=== PATIENT | female | born 1970 | race Caucasian/White ===

== ENCOUNTER 2019-02-11 16:40 | Inpatient (IN) ==
[2019-02-11] MEDS ORDERED: ASPIRIN PO ONE (16:49)
--- NOTE | 2019-02-11 16:56 | EKG Report ---
Test Performed on : 02/11/2019 4:54:05 PM Test Reason : palpitations cp Blood Pressure : / mmHG Vent. Rate : 102 BPM Atrial Rate : 102 BPM P-R Int : 154 ms QRS Dur : 080 ms QT Int : 338 ms P-R-T Axes : 077 064 043 degrees QTc Int : 440 ms Sinus tachycardia. Otherwise normal ECG When compared with ECG of 07-DEC-2017 15:06, No significant change was found Unconfirmed Result
[2019-02-11 17:39] LABS: BASO# 0.01 X1000 (0.0-0.2); BASO% 0.2 % (0.0-0.8); EOS# 0.02 X1000 (0.0-0.7); EOS% 0.3 % (0.0-10.0); HEMATOCRIT 19.4 % (37.0-47.0); LYMPH# 0.81 X1000 (1.2-3.4); LYMPH% 13.9 % (20.5-51.1); MCH 20.2 PG (27-31); MCHC 27.6 g/dL (33-37); MCV 73.4 FL (81-99); MONO# 0.34 X1000 (0.11-0.59); MONO% 5.8 % (1.7-9.3); NEUT# 4.64 X1000 (1.4-6.5); NEUT% 79.8 % (42.2-75.2); PLT 252 X1000 (130-400); RBC 2.67 XMIL (4.2-5.4); RDW 23.4 % (11.5-14.5); WBC 5.79 X1000 (4.8-10.8)
[2019-02-11 17:42] LABS: HEMOGLOBIN 5.3 g/dL (12.0-16.0)
[2019-02-11 17:43] LABS: LYMPHS 14 % (21-51); MICROCYTOSIS 3+; MONO 5 % (1-9); SEGS 81 % (42-75)
[2019-02-11] MEDS ORDERED: NS 500 ML IV ONE (17:45)
[2019-02-11 17:52] LABS: INR 0.98; PROTIME 13.5 Seconds (11.0-16.0); PTT 25.7 Seconds (22.3-41.8)
[2019-02-11 17:56] LABS: AGAP 11; ALBUMIN 4.1 g/dL (3.5-5.0); ALKALINE PHOSPHATASE 39 U/L (32-104); BUN 9 mg/dL (8-22); CALCIUM 9.4 mg/dL (8.8-10.2); CHLORIDE 102 mmol/L (98-107); CK PROFILE 40 U/L (24-173); COSMO 276; CREATININE 0.6 mg/dL (0.5-0.9); ESTIMATED GFR > 60; GLUCOSE 120 mg/dL (70-104); GOT 13 U/L (10-30); GPT 6 U/L (10-36); POTASSIUM 3.5 mmol/L (3.5-5.1); SODIUM 138 mmol/L (136-145); TCO2 25 mmol/L (25-35); TOTAL PROTEIN 6.6 g/dL (6.3-8.3)
--- NOTE | 2019-02-11 18:00 | PROVIDER DOCUMENTATION ---
HPI-General Adult - General Chief Complaint: Palpitations Stated Complaint: HEART PALP / DIZZY Time Seen by Provider: 02/11/19 17:48 Source: patient Allergies/Adverse Reactions: Patient Allergies Allergy/AdvReac Type Severity Reaction Status Date / Time haloperidol [From Haldol] AdvReac Unknown Verified 12/07/17 13:44 Home Medications: Home Medication List Medication Instructions Recorded Confirmed Last Taken Type Ergocalciferol (Vitamin D2) 50,000 unit PO Q7D #10 capsule 12/31/16 12/07/17 12/07/17 09:30 Rx [Vitamin D] 84009 UNIT Fluoxetine [Prozac] 10 mg PO QAM #30 capsule 12/31/16 12/07/17 12/07/17 09:30 Rx 10 MG Iron Carbonyl/Ascorbic Acid 1 each PO DAILY #30 tablet 12/31/16 12/07/17 12/07/17 09:30 Rx [Icar-C] 1 EACH Omeprazole 20 mg PO DAILY #30 capsule. 12/31/16 12/07/17 12/07/17 09:30 Rx 20 MG Diazepam [Valium] 5 mg PO HS 12/07/17 12/07/17 12/06/17 21:00 History 5 MG Nitrofurantoin Monohyd/M-Cryst 100 mg PO BID #14 cap 12/07/17 Unknown Rx [Macrobid 100 mg Capsule] - History of Present Illness -Gen Adult Nature of Presenting Problems: Pt. is 48 yof that presents with c/o SOB, palpitations and weakness with dizziness. Pt. denies any other complaints. Pt. reports a Hx of anemia and needing blood before. Location of Pain/Injury: reports: chest. denies: none, head, face, mouth, neck, upper extremity, hand(s), abdomen, back, pelvis, genitalia, lower extremity, feet, upper body, lower body, generalized, other Pain Radiation: reports: no radiation. denies: arm(s), back, buttocks, chest, epigastric, feet, groin, jaw, flank (L), legs (lower), LLQ, LUQ, neck, periumbilical, flank (R), RLQ, RUQ, shoulder(s), scapula, scrotal, sternal notch, suprapubic, legs (upper), urethral, vaginal, other Quality of Pain: reports: aching. denies: pressure, sharp, throbbing, tightness Severity: reports: mild. denies: moderate, severe Onset/Duration: reports: gradual, 3 days ago Timing: reports: still present. denies: improving, constant, getting worse Context/Activities at Onset: reports: none. denies: light activity, moderate activity, vigorous activity, recent emotional stress, recent physical stress, recent trauma history, possible bad food, cold exposure, eating, out of country travel, rest, sleep, sexual activity, other Modifying Factors: improves with: nothing Associated Symptoms: reports: chest pain, dizziness, shortness of breath, weakness. denies: denies symptoms, anxiety, arm pain, back/neck pain, constipation, cough, diaphoresis, diarrhea, EENT symptoms, fatigue, fever/chills, genitourinary problems, headaches, heartburn, joint pain, loss of appetite, malaise, muscle aches, sinus congestion/drainage, nausea, rash, seizure, sensory/motor loss, pain with inspiration, swelling/mass in abdomen, syncope, vomiting, trouble walking, other Similar Symptoms Previously?: Yes Recently seen or treated by another doctor?: No Review of Systems - Adult - REVIEW OF SYSTEMS - ADULT Constitutional: reports: no symptoms reported Eyes: reports: no symptoms reported Ears, Nose, Mouth & Throat: reports: no symptoms reported Cardiovascular: reports: see HPI, palpitations. denies: chest pain, orthopnea, syncope Respiratory: reports: see HPI, shortness of breath. denies: cough, pleurisy, wheezing Gastrointestinal: reports: no symptoms reported Genitourinary: reports: no symptoms reported Musculoskeletal: reports: no symptoms reported Integumentary: reports: no symptoms reported Neurological: reports: see HPI, dizziness/vertigo. denies: numbness, seizure, tremors Psychiatric: reports: no symptoms reported Past History - Adult - PAST MEDICAL HISTORY-ADULT Review of Records: reports: Old Records Reviewed, Nursing Assessment Review, Medications Reviewed, Social history reviewed & non-contributory. Major Childhood Illnesses: reports: denies history Cardiovascular: reports: denies history Respiratory: reports: denies history Gastrointestinal: reports: GERD Obstetrical/Gynecological: reports: denies history Genitourinary: reports: denies history Musculoskeletal: reports: denies history Neurological: reports: denies history Psychiatric: reports: anxiety, bipolar, depression, other (ADD) Endocrine/Immune: reports: anemia Other Conditions: reports: denies history - PRIOR SURGERIES/PROCEDURES Surgical/Procedure History: reports: cholecystectomy, BTL, tonsillectomy - IMMUNIZATION STATUS Childhood Immunizations: See Nurse Assessment Flu Vaccine: See Nurse Assessment - FAMILY HISTORY Family History: reviewed, not pertinent - SOCIAL HISTORY Smoking: cigarettes, greater than 1 pack/day Provider spent 3-5 mins advising pt. on dangers of tobacco.: Discussed manners to quit use, and f/u contacts for add'l counseling. Physical Exam-General - PHYSICAL EXAM-ADULT Initial Vital Signs Reviewed: Yes - CONSTITUTIONAL General Appearance: moderate distress. negative: anxious, slow to respond, obtunded, combative - EYES Eyes: PERRL/EOMI, pink conjunctivae - HEAD, EARS, NOSE, MOUTH & THROAT HENMT: normocephalic/atraumatic, moist mucous membranes. negative: angioedema, frontal tenderness, maxillary tenderness - NECK Neck: non-tender, full range of motion, supple, normal inspection. negative: lymphadenopathy, trachial deviation, thyromegaly - RESPIRATORY Respiratory: lungs clear, normal breath sounds - CARDIOVASCULAR Cardiovascular: normal peripheral pulses, regular rate, rhythm, no edema - GASTROINTESTINAL (ABDOMEN) Abdominal Exam: normal bowel sounds, non tender, soft - LYMPHATIC Lymphatic: no adenopathy. negative: axilla node tender, cervical node tenderness - MUSCULOSKELETAL Back Exam: normal inspection, no CVA tenderness, no vertebral tenderness Extremity: normal range of motion, non-tender, normal gait, normal inspection Peripheral Pulses: radial (R): 2+, radial (L): 2+ - SKIN Integumentary: pallor. negative: cyanosis, erythema, swelling, tenderness - NEUROLOGIC Neurologic: grossly normal, no motor/sensory deficits - PSYCHIATRIC Psych/Mental Status: normal mood/affect, normal thought content, normal thought process, oriented x 3 Progress - PLAN OF CARE/RESULTS Progress/Plan/Lab Results: Vital Signs - 8 hr 02/11/19 16:43 Temperature 98.9 F Pulse Rate 84 Respiratory Rate 18 Blood Pressure 108/69 O2 Sat by Pulse Oximetry 100 Laboratory Results - last 24 hr 02/11/19 02/11/19 17:02 17:02 WBC 5.79 RBC 2.67 L Hgb 5.3 L* Hct 19.4 L MCV 73.4 L MCH 20.2 L MCHC 27.6 L RDW Std Deviation 23.4 H Plt Count 252 MPV Not Reportable Immature Gran % (Auto) 0.0 Neut % (Auto) 79.8 H Lymph % (Auto) 13.9 L Berg[place] % (Auto) 5.8 Eos % (Auto) 0.3 Baso % (Auto) 0.2 Immature Gran # (Auto) 0.00 Neut # (Auto) 4.64 Lymph # (Auto) 0.81 L Bergen # (Auto) 0.34 Eos # (Auto) 0.02 Baso # (Auto) 0.01 Segmented Neutrophils 81 H Lymphocytes 14 L Monocytes 5 Microcytosis 3+ PT 13.5 INR 0.98 PTT (Actin FS) 25.7 Orders Category Date Time Status Cardiac Monitoring DIRECTED Care 02/11/19 16:49 Active Oxygen Therapy- ED Nursing DIRECTED Care 02/11/19 16:49 Active Saline Loc NOW Care 02/11/19 16:49 Active Transfuse .Give-Transfuse Care 02/11/19 17:45 Active CHEST-2 VIEWS [RAD] Stat Exams 02/11/19 16:49 Taken CBC WITH ELECTRONIC DIFF [HEME] Stat Lab 02/11/19 17:02 Completed CK PROFILE [SP CHEM] Stat Lab 02/11/19 17:02 Received COMPREHENSIVE METABOLIC PANEL [CHEM] Stat Lab 02/11/19 17:02 Received LRPC (RED CELLS) [BBK] Stat Lab 02/11/19 17:45 Ordered OCCULT BLOOD SCREEN STOOL PL Stat Lab 02/11/19 17:55 Uncollected PRO B-NATRIURETIC PEPTIDE Stat Lab 02/11/19 17:02 Received PROTIME WITH INR [COAG] Stat Lab 02/11/19 17:02 Completed PTT [COAG] Stat Lab 02/11/19 17:02 Completed TROPONIN T Stat Lab 02/11/19 17:02 Received TYPE & SCREEN [BBK] Stat Lab 02/11/19 17:44 Uncollected 0.9% Sodium Chloride Inj [Ns] 500 ml Med 02/11/19 17:45 Discontinued IV As Directed mls/hr Aspirin Med 02/11/19 16:49 Discontinued 325 mg PO NOW ONE CP/SOB/Palp >45 yrs of Age Stat Oth 02/11/19 16:49 Ordered EKG [EKG] Stat Ther 02/11/19 16:49 Draft Laboratory Tests 02/11/19 02/11/19 02/11/19 17:02 17:02 17:02 WBC 5.79 RBC 2.67 L Hgb 5.3 L* Hct 19.4 L MCV 73.4 L MCH 20.2 L MCHC 27.6 L RDW Std Deviation 23.4 H Plt Count 252 MPV Not Reportable Immature Gran % (Auto) 0.0 Neut % (Auto) 79.8 H Lymph % (Auto) 13.9 L Berg[place] % (Auto) 5.8 Eos % (Auto) 0.3 Baso % (Auto) 0.2 Immature Gran # (Auto) 0.00 Neut # (Auto) 4.64 Lymph # (Auto) 0.81 L Bergen # (Auto) 0.34 Eos # (Auto) 0.02 Baso # (Auto) 0.01 Segmented Neutrophils 81 H Lymphocytes 14 L Monocytes 5 Microcytosis 3+ PT INR PTT (Actin FS) Sodium 138 Potassium 3.5 Chloride 102 Carbon Dioxide 25 Anion Gap 11 BUN 9 Creatinine 0.6 Estimated GFR/1.73 m2 > 60 BUN/Creatinine Ratio 15 Glucose 120 H Calculated Osmolality 276 Calcium 9.4 Total Bilirubin 0.20 AST 13 ALT 6 L Alkaline Phosphatase 39 Creatine Kinase 40 Troponin T [id number] Pept 117 Total Protein 6.6 Albumin 4.1 Globulin 3.0 Albumin/Globulin Ratio 2.0 02/11/19 02/11/19 17:02 17:02 WBC RBC Hgb Hct MCV MCH MCHC RDW Std Deviation Plt Count MPV Immature Gran % (Auto) Neut % (Auto) Lymph % (Auto) Bergen % (Auto) Eos % (Auto) Baso % (Auto) Immature Gran # (Auto) Neut # (Auto) Lymph # (Auto) Bergen # (Auto) Eos # (Auto) Baso # (Auto) Segmented Neutrophils Lymphocytes Monocytes Microcytosis PT 13.5 INR 0.98 PTT (Actin FS) 25.7 Sodium Potassium Chloride Carbon Dioxide Anion Gap BUN Creatinine Estimated GFR/1.73 m2 BUN/Creatinine Ratio Glucose Calculated Osmolality Calcium Total Bilirubin AST ALT Alkaline Phosphatase Creatine Kinase Troponin T < 0.010 Siz-T-Dcibqclbamu Pept Total Protein Albumin Globulin Albumin/Globulin Ratio Discussed results and plan of care with patient. Patient agrees with plan and verbalizes understanding. Result Diagrams: 02/11/19 17:02 02/11/19 17:02 - EKG 1 Time of EKG reading by physician:: 16:56 EKG Read and Signed by:: Ty Mock EKG Interpretation (*Must complete 3 of following elements*): Normal Rate: 102 Rhythm: Sinus tach [place]: normal QRS: normal OR Interval: normal ST Wave: normal - XRAY 1 XRAY Study: Chest ([facility] - [address] [facility], [address], [place] [address] [facility] - [address] [place] [address] Department of Imaging Patient: JONNY MINOR Date: 02/11/19#: [id number] : 1970ADM Status: REG ERAcct#: [id number] Age/Sex: 48/FRoom/Bed: Loc: P.ED Ordering Physician: Ty Mock MD Family Physician: None,PCP Reason for Procedure: palpitations cp Signed EXAM: CHEST-2 VIEWS HISTORY: palpitations cp TECHNIQUE: Chest two views COMPARISON: 12/07/2017 FINDINGS: The lungs are hyperexpanded. The heart is not enlarged. The vessels are not distended. There are no infiltrates. No pleural effusions. Moderate sized hiatal hernia. Nodule in the lower left lung is unchanged. IMPRESSION: No acute abnormality. Electronically signed by Calvin Diaz 02/11/2019 6:41 PM 02/11/191840 Interpreting Physician: Calvin Diaz MD Dictated Date/Time: 02/11/191839 cc: Ty Mock MD; None,PCP) XRAY Interpretation: See note - CONSULTS/PCP/HOSPITALIST Notification #1 *Consult/PCP/Hospitalist*: Dr. Calles Time Discussed: 19:07 Reason/Comments: Admission Consult Disposition: Will see in ED, Admit (Call hospitilist at main) #2 Consult: Dr. Funes Time Discussed: 19:12 Reason/Comments: Admission Consult Disposition: Admit (Call GI and send over) #3 Consult: Dr. Victor Time Discussed: 19:23 Reason/Comments: Consult Departure - Departure Date of Disposition Decision: 02/11/19 Time of Disposition Decision: 18:12 DIAGNOSIS: Tobacco use disorder Anemia Qualifiers: Anemia type: unspecified type Qualified Code(s): D64.9 - Anemia, unspecified Disposition: ADMITTED INPATIENT 09 Certified Medical Emergency: Emergent Condition: Stable Referrals and Follow-Ups: None,PCP [Primary Care Provider] - - Critical Care Note This patient required my direct & personal management of CC.: No Attestation - Physician/ ELISE Attestation Patient care was provided by Advanced Practice Provider:: Yes Advanced Practice Provider:: Carlos Caldera Advanced Practice Provider documentation review:: The Mid-level provider documentation, treatment plan and medical decision making was reviewed by the physician who agrees with all treatment and medical decision making by the MLP. The physician spent face to face time with patient:: No Advanced Practice Provider documentation review:: Supervising physician onsite and consulted in the evaluation and care of this patient. The physician did not have a face to face encounter with the patient.
[2019-02-11 18:41] LABS: OCCULT BLOOD 1 POSITIVE (NEGATIVE)
--- NOTE | 2019-02-11 18:43 | Diag Imaging Result Doc PS360 ---
EXAM: CHEST-2 VIEWS HISTORY: palpitations cp TECHNIQUE: Chest two views COMPARISON: 12/07/2017 FINDINGS: The lungs are hyperexpanded. The heart is not enlarged. The vessels are not distended. There are no infiltrates. No pleural effusions. Moderate sized hiatal hernia. Nodule in the lower left lung is unchanged. IMPRESSION: No acute abnormality. Electronically signed by Calvin Diaz 02/11/2019 6:41 PM
[2019-02-11] MEDS ORDERED: SODIUM CHLORIDE 0.9% INJ ONE (19:10)
[2019-02-11] MEDS ORDERED: PROTONIX IV ONE (19:10)
[2019-02-11] MEDS ORDERED: PROTONIX 80 MG in NS 80 ML IV SCH (19:15)
[2019-02-11] MEDS ORDERED: NS 500 ML ONE ×2 (20:41→23:23)
[2019-02-12] MEDS: NS 1,000 ML IV SCH ×3 (01:41→22:08)
[2019-02-12] MEDS: ZOFRAN IV PRN ×2 (01:41→20:33)
--- NOTE | 2019-02-12 03:29 | HISTORY AND PHYSICAL ---
PRIMARY CARE PHYSICIAN: None. CHIEF COMPLAINT: Dizziness, weakness, heart palpitations, and chest pain. HISTORY OF PRESENT ILLNESS: Ms. Collins is a 48-year-old female. She presented to [facility] ER today with a past medical history of depression, anxiety, constipation, chronic anemia, hiatal hernia, and GI bleeding. The patient states that she has been having dizziness, heart palpitations and chest pain for the past 3 days. The patient states she has been very weak too for the past few weeks. The patient states she does have a past medical history of anemia and was in the hospital back in 2013, and was seen by Dr. Kerr. She was noted to have a hiatal hernia at that time and gastritis. The patient is on home iron. She states that she does have iron deficiency anemia. She is also on vitamin B12 and vitamin D. The patient states that she did vomit yesterday, she did not note any blood in the vomit or any coffee- ground emesis noted. She states that her stools are very hard and sometimes they appear dark. She is also complaining of dysuria when she urinates she also has some increased frequency with urination. No hematuria noted. The patient denies chest pain at this time. Laboratory findings in the ER show the patient to have a hemoglobin of 5.3, hematocrit of 19.4, MCV of 73.4, MCH of 20.29,and pH of 27.6. Stool occult blood was positive. PAST MEDICAL HISTORY: Constipation, anemia, a GI bleed in [address] Kerr, was found to have a hiatal hernia and gastritis, depression, anxiety. PAST SURGICAL HISTORY: Gallbladder removal, tubal, and EGD. FAMILY HISTORY: Mother has depression and hypothyroidism. Father has COPD. Sister that has depression and hypothyroidism. SOCIAL HISTORY: The patient lives in [place] with her and her other family members. She is a housewife. She smokes a half a pack a day of cigarettes and has for 22 years. She denies any alcohol or drug abuse; however, she does states that over 20 years ago she was a crack cocaine addict, but has quit for over 20 years. ALLERGIES: Haldol. MEDICATIONS: Vitamin B12 5000 mcg daily, ascorbic acid 1 tablet p.o. daily, vitamin D2 50,000 units p.o. every 7 days. LABORATORY DATA AND DIAGNOSTICS: White blood cell count 5.79, hemoglobin 5.3, hematocrit 19.4, red blood cell count 2.67, MCV 73.4, MCH 20.2, MCHC 27.6, RDW is 23.4, platelet count is 252,000. PT is 13.5, INR is 0.98, PTT is 25.7. Sodium is 138, potassium is 3.5, chloride is 102, carbon dioxide is 25, anion gap is 11, BUN is 9, creatinine is 0.6. Estimated GFR is greater than 60, glucose is 120, calcium is 9.4, total bilirubin is 0.2, AST is 13, ALT is 6, alkaline phosphatase is 39. Creatine kinase is 40. Troponin is less than 0.01. ProBNP is 117. Stool for occult blood is positive. Chest x-ray shows no acute abnormality. REVIEW OF SYSTEMS: A 12-point review of systems has been obtained. All are negative except what is stated above in the HPI. PHYSICAL EXAMINATION: VITAL SIGNS: Temperature is 98.2 degrees, pulse rate is 100, respiratory rate is 20, blood pressure is 122/61, O2 saturation is 100% and this is on nasal cannula at 2 L. Weight is 158 pounds, height is 5 feet 2 inches. GENERAL: This is a 48-year-old female, she is lying on the bed, she is in no acute distress at present time. She is well nourished and well developed. HEENT: Atraumatic and normocephalic. Pupils are equal, round and reactive to light. Extraocular movements are intact. Sclerae are anicteric. Mucous membranes are moist. NECK: Supple. No lymphadenopathy. Trachea is midline. No JVD. No thyromegaly. No bruits. CARDIOVASCULAR: Regular rate and rhythm. No murmurs, gallops or rubs appreciated. RESPIRATORY: Lung sounds are clear with equal chest excursion. Respirations are nonlabored with no accessory muscle usage. GASTROINTESTINAL: Abdomen is soft, nondistended and nontender. Bowel sounds are present x4. NEUROLOGIC: Cranial nerves II-XII intact. The patient is awake, alert and oriented, able to follow all commands. MUSCULOSKELETAL: Full distal strength noted. No abnormality of gait. No deformities. EXTREMITIES: No clubbing, cyanosis or edema noted. DP and PT pulses are present and palpable. SKIN: Warm, dry and intact. No rashes, bruises or no diaphoresis noted. ASSESSMENT AND PLAN: 1. Gastrointestinal bleed. We have admitted this patient to the CIC unit. She was given 2 units of blood at [place] emergency room. We are going to recheck her CBC this morning. We placed her on IV fluid hydration of normal saline at 100. I have consulted Dr. Kerr for Gastroenterology. 2. Anemia, suspicious for iron deficiency anemia. This patient is on home iron. I have ordered an iron level. 3. Depression. The patient states that she has not been on her home Prozac. She does not have a doctor at this time, so she has not been taking this medication. We are not going to restart this medication at this time. 4. Anxiety. The patient was on Valium at home, but she states that since she has not been able to see the doctor she has not been able to get her medications filled because she does not have insurance, so we will not restart this medication. 5. Nicotine dependency. We have provided smoking cessation and I have ordered her a Nicotine patch daily. 6. Deep venous thrombosis prophylaxis. Because the patient does have acute gastrointestinal bleed we are only going to place her on sequential compression devices. This should cover her for deep venous thrombosis prophylaxis. 7. Gastrointestinal prophylaxis. The patient is on a Protonix drip at this time that started at [place] emergency room. We will continue this drip and she has also got intravenous Zofran p.r.n. for nausea. We have admitted this patient to the CIC unit. Placed on cardiac monitor. She did receive 2 units of blood, one at [place] and then one en route from [place], so those are complete at this time. She is on a Protonix drip, we will continue that. We are going to repeat all her labs this morning. I am going to check a CBC, a BMP, magnesium, phosphorus, vitamin B12 level, iron level, a TSH level, and a folate level. She has already had an occult blood stool that was positive. We are going to check H&H Q 6hrs. I am awaiting the results of her urinalysis before starting any medications for her dysuria. I have started her on IV fluid hydration. We are going to watch for any further positive stools. We are going to keep her NPO at this time and await Gastroenterology recommendations. Dictated by NANCY Larsen for Edward Funes MD I have performed a face to face diagnostic evaluation. Labs and xrays - reviewed. Exam- chest clear, CV- regular, Abd- soft. A/P- GI bleed- admit, npo, GI consult, monitor H/H, transfusion of PRBC. Dr. Funes cc: MD Hugh Paniagua MD [facility]
[2019-02-12] MEDS ORDERED: PROTONIX 80 MG in NS 80 ML IV SCH (05:00)
[2019-02-12 05:58] LABS: BASO# 0.02 X1000 (0.0-0.2); BASO% 0.4 % (0.0-0.8); EOS# 0.07 X1000 (0.0-0.7); EOS% 1.5 % (0.0-10.0); HEMATOCRIT 24.7 % (37.0-47.0); HEMOGLOBIN 7.2 g/dL (12.0-16.0); LYMPH# 1.25 X1000 (1.2-3.4); LYMPH% 26.2 % (20.5-51.1); MCH 22.2 PG (27-31); MCHC 29.1 g/dL (33-37); MONO# 0.32 X1000 (0.11-0.59); MONO% 6.7 % (1.7-9.3); NEUT# 3.11 X1000 (1.4-6.5); NEUT% 65.2 % (42.2-75.2); PLT 202 X1000 (130-400); RBC 3.25 XMIL (4.2-5.4); RDW 21.7 % (11.5-14.5); WBC 4.77 X1000 (4.8-10.8)
[2019-02-12 06:11] LABS: AGAP 10; BUN 9 mg/dL (8-22); CALCIUM 8.3 mg/dL (8.8-10.2); CHLORIDE 107 mmol/L (98-107); COSMO 280; CREATININE 0.6 mg/dL (0.5-0.9); ESTIMATED GFR > 60; GLUCOSE 91 mg/dL (70-104); MAGNESIUM 1.8 mg/dL (1.5-2.7); POTASSIUM 3.6 mmol/L (3.5-5.1); SODIUM 141 mmol/L (136-145); TCO2 24 mmol/L (25-35)
--- NOTE | 2019-02-12 07:33 | Diag Imaging Result Doc PS360 ---
EXAM: KUB ABDOMEN HISTORY: GI bleed TECHNIQUE: Abdomen two views COMPARISON: None. FINDINGS: No free air beneath the diaphragm. The gallbladder has been removed. There is stool throughout the colon. No bowel obstruction. No organomegaly. No abnormal abdominal calcifications. IMPRESSION: Mild constipation. Electronically signed by Calvin Diaz 02/12/2019 7:31 AM
[2019-02-12 08:59] LABS: IRON SATURATION 21 %; TIBC 283 ug/dL; TOTAL IRON 59 ug/dL (49-151); UNBOUND IRON 224 ug/dL (112-346)
[2019-02-12] MEDS: NICODERM PATCH TD SCH (09:52)
[2019-02-12] MEDS: NEXIUM IV SCH ×2 (10:01→20:33)
[2019-02-12 10:03] LABS: URINE SOURCE CLEAN CATCH
[2019-02-12 10:21] LABS: BILIRUBIN URINE NEGATIVE (NEGATIVE); BLOOD URINE NEGATIVE (NEGATIVE); COLOR YELLOW; GLUCOSE URINE NEGATIVE (NEGATIVE); KETONE URINE NEGATIVE (NEGATIVE); LEUKOCYTES URINE LARGE (NEGATIVE); NITRITE URINE NEGATIVE (NEGATIVE); PROTEIN URINE NEGATIVE (NEGATIVE); SP GRAVITY URINE 1.013; TURBIDITY URINE CLEAR (CLEAR); UROBILINOGEN URINE NORMAL (NORMAL)
[2019-02-12 10:23] LABS: UR EPITHELIAL CELLS <10 /HPF (<10); URINE BACTERIA 1+ /HPF; URINE RBC <10 /HPF (<10); URINE WBC <10 /HPF (<10)
--- NOTE | 2019-02-12 11:10 | PROGRESS NOTE ---
DATE: 02/12/2019 SUBJECTIVE: This morning Ms. Collins referred to be doing okay. No new complaints. Ms. Collins refers to be feeling excessively weak, dizzy, and that was the main reason why she came to the emergency department, where she was evaluated and found to have a hemoglobin of 5.3. Ms. Collins also reports that she has been having intermittently dark stools. She got 2 units of PRBC this morning. Hemoglobin up to 7.2. She is feeling a lot better. OBJECTIVE: Vital signs: Blood pressure is 102/52, pulse of 80 respirations 15, temperature 98.8 degrees, patient is saturating 96%. On general exam, Ms. Collins is 48-year-old female. She is in bed no distress mucosa is pink and moist. Anicteric. Acyanotic. Neck is supple. Chest was clear to auscultation. Cardiovascular: Regular rate and rhythm. Abdomen: Soft, nontender. Extremities: No pedal edema. Central Nervous System: Patient is awake, alert, oriented. No focal neurological deficit. DIAGNOSTIC STUDIES: Lab work has been reviewed. Hemoglobin is up to 7.2, severe microcytosis. Chemistry is unremarkable. Iron studies shows ferritin of 44 which is remarkably low. TSH is 6.46. Imaging studies including a KUB this morning showed mild constipation. A chest x-ray yesterday showed no acute pathology. PREVIOUS CLINICAL DATA: EGD was done in [address] Kerr, which revealed a Jose lesion in the stomach, most likely the cause of her anemia, mixed hiatal hernia which is large and there was also an esophageal ring. ASSESSMENT: 1. Severe symptomatic anemia with iron deficiency. The patient is status post 2 PRBC transfusion. 2. Iron deficiency anemia secondary to chronic gastrointestinal bleed. 3. History of large hiatal and paraesophageal hernia with Jose lesion, suspected to be the cause of the patient's chronic gastrointestinal blood loss with anemia. 4. Mildly elevated TSH we are going to repeat this with a free T4. 5. History of major depressive disorder, anxiety disorder, stable. In general, I think Ms. Collins is not a lot better. She is on b.i.d. PPI. She is pending Gastroenterology evaluation today. cc: Edward Marroquin MD
[2019-02-12 12:29] LABS: HEMATOCRIT 23.4 % (37.0-47.0); HEMOGLOBIN 6.9 g/dL (12.0-16.0)
[2019-02-12] MEDS ORDERED: NS 500 ML IV ONE ×2 (15:25)
[2019-02-12] MEDS ORDERED: PROTONIX IV SCH (19:11)
[2019-02-12] MEDS: SODIUM CHLORIDE 0.9% INJ SCH (20:32)
[2019-02-13 01:03] LABS: HEMATOCRIT 25.9 % (37.0-47.0); HEMOGLOBIN 7.8 g/dL (12.0-16.0)
--- NOTE | 2019-02-13 03:50 | GASTROENTEROLOGY CONSULTATION ---
DATE: 02/13/2019 REASON FOR CONSULTATION: Melena, symptomatic anemia. HISTORY OF PRESENT ILLNESS: Ms. Ruthann Collins is a 48-year-old woman with past medical history of GERD, prior GI bleed in the remote past from Jose ulcers and gastritis, hiatal hernia, Schatzki's ring, prior cholecystectomy, who presents with 1 week of progressive fatigue, palpitations, chest pain, dyspnea on exertion. The patient reports having intermittent melenic stools for the past couple of months. She says that her appetite has been decreased and she has not had any weight loss. She rarely have any nausea or vomiting. She is not on any blood thinners. She does take Aleve 2 rarely. She has chronic constipation at baseline. No prior colonoscopy. No family history of GI malignancies. REVIEW OF SYSTEMS: As per HPI, otherwise 12-point review of systems are negative. PAST MEDICAL HISTORY: As per HPI. Her other history includes chronic anemia, depression. PAST SURGICAL HISTORY: Cholecystectomy, tubal ligation. SOCIAL HISTORY: She is a 1/2 pack per day smoker, She has smoked for over 22 years. No alcohol or drug use. FAMILY HISTORY: No family history of GI malignancies. MEDICATIONS: Iron, B12, vitamin D, multivitamin, Aleve. ALLERGIES: To Haldol. PHYSICAL EXAMINATION: Vital Signs: Temperature 98.6 degrees, heart rate 84, respiratory rate 20, blood pressure 104/55, O2 saturation 97% on room air. General: Patient is awake, alert, oriented, in no acute distress. HEENT: Sclerae anicteric. Moist mucous membranes. Extraocular motor intact. Neck: Supple. No JVD or lymphadenopathy. Cardiac: Regular rate and rhythm. No murmurs, rubs, or gallops. Lungs: Clear to auscultation bilaterally. Abdomen: Soft, nontender, nondistended. Normoactive bowel sounds. No rebound or guarding. Extremities: No clubbing, cyanosis, or edema. Neurologic: Nonfocal. LABS: White count of 4.77, hemoglobin 6.9 from 5.3, after receiving 2 units of packed red blood cells, and then had 1 after the 6.9 hemoglobin, platelets of 202,000. INR 0.98. BMP is unremarkable as well as LFTs. Iron studies show normal iron studies, these were checked after she had a blood transfusion. B12, folate within normal limits. TSH is 6.46. UA shows large leukocytes. IMAGIN. Chest x-ray on 02/11 shows no acute abnormality. 2. KUB shows mild constipation. ASSESSMENT AND PLAN: Ms Ruthann Collins is a 48-year-old woman with past medical history of gastroesophageal reflux disease, prior gastrointestinal bleed from Jose ulcers, gastritis. She has a prior history of Schatzki's ring and iron deficiency anemia, who presents with symptomatic anemia in the setting of melenic stools for the last 2 months. The patient reports taking NSAIDs rarely. She says her symptoms are similar to when she presented for GI bleed in 2013. At that time, Dr. Kerr performed her endoscopy. She has been transfused 3 units of blood with accurate response. She is hemodynamically stable. Her iron studies are unrevealing as well as her B12 and folate. She is currently on Nexium 40 mg IV b.i.d., IV fluids, and antiemetics. Her MCV is low at 76, consistent with chronic anemia. I suspect that her bleeding is not acute and that she has been oozing for a long period of time. We will plan on diagnostic EGD tomorrow. If negative per radiology of bleeding, we will plan for a follow-up colonoscopy. The patient previously was advised to have a colonoscopy on discharge in 2013, when she had her prior bleed, but could not follow up with Dr. Kerr given insurance coverage. Thank you for this consult. We will follow with you. Please call with any questions or concerns.
[2019-02-13] MEDS: NS 1,000 ML IV SCH ×3 (04:16→16:00)
[2019-02-13 06:27] LABS: HEMATOCRIT 25.6 % (37.0-47.0); HEMOGLOBIN 7.8 g/dL (12.0-16.0); MCH 24.3 PG (27-31); MCHC 30.5 g/dL (33-37); MCV 79.8 FL (81-99); PLT 200 X1000 (130-400); RBC 3.21 XMIL (4.2-5.4); WBC 4.97 X1000 (4.8-10.8)
[2019-02-13 06:41] LABS: AGAP 9; ALBUMIN 3.1 g/dL (3.5-5.0); BUN 3 mg/dL (8-22); CALCIUM 8.4 mg/dL (8.8-10.2); CHLORIDE 108 mmol/L (98-107); COSMO 283; CREATININE 0.6 mg/dL (0.5-0.9); ESTIMATED GFR > 60; GLUCOSE 88 mg/dL (70-104); PHOSPHORUS 3.2 mg/dL (2.7-4.5); SODIUM 144 mmol/L (136-145); TCO2 27 mmol/L (25-35)
[2019-02-13 06:50] LABS: FREE T4 0.85 ng/dL (0.93-1.70); TSH 4.16 uIUmL (0.27-4.20)
[2019-02-13] MEDS ORDERED: XYLOCAINE-MPF 2% ONE (09:19)
[2019-02-13] MEDS ORDERED: DIPRIVAN 1% ONE (09:19)
--- NOTE | 2019-02-13 09:40 | ENDOSCOPY OPERATIVE NOTE ---
[facility] ENDOSCOPY OPERATIVE NOTE , PATIENT: Ruthann Collins ADMISSION DATE: MR#: [id number] : 1970 EGD PROCEDURE REPORT PROCEDURE DATE: 02/13/2019 SURGEON: Leobardo Hammer MD STATUS: inpatient SHOE TREER: Stehpanie Arcos PREOPERATIVE DIAGNOSIS: The patient is a 48 yr old female here for an EGD due to anemia secondary to chronic blood loss, history of esophageal reflux, and melena. PROCEDURE PERFORMED: EGD, diagnostic MEDICATIONS: Per Anesthesia TOPICAL ANESTHETIC: none CONSENT: The patient understands the risks and benefits of the procedure and understands that these r isks include, but are not limited to: sedation, allergic reaction, infection, perforation and/or bleeding. Alternative means of evaluation and treatment include, among others: physical exam, x-rays, and/or surgical intervention. The patient elects to proceed with this endoscopic procedure. HISORY AND PHYSICAL: 02/13/2019 function. Hand hygiene and appropriate measures for infection prevention was taken. After the risks, benefits and alternatives of the procedure were thoroughly explained, Informed consent was verified, confirmed and timeout was successfully executed by the treatment team. The patient was anesthetized with topical anesthesia and the PR97-e42 ([id number]) endoscope was introduced through the mouth and advanced to the second portion of the duoden um. Retroflexion was performed in the stomach and revealed a hiatal hernia. The gastroscope was then slowly withdrawn and removed. ESOPHAGUS: The z-line was noted at. 35. A 10 cm hiatal hernia was noted. STOMACH: Mild gastritis (inflammation) was found in the gastric body and gastric antrum. Erosions n oted in the Large Hiatal hernia sac suggesting chronic blood loss. DUODENUM: The duodenal mucosa showed no abnormalities in the duodenal bulb, 1st part duodenum, and 2n d part duodenum. SPECIMENS REMOVED: No ADVERSE EVENTS: There were no complications. POSTOPERATIVE DIAGNOSIS: 1. The z-line was noted at 2. 10 cm hiatal hernia 3. Gastritis (inflammation) was found in the gastric body and gastric antrum 4. Erosions noted in the Large Hiatal hernia sac suggesting chronic blood loss 5. The duodenal mucosa showed no abnormalities in the duodenal bulb, 1st part duodenum, and 2nd part duodenum RECOMMENDATIONS: 1. Start Proton pump inhibitor daily - 30 minutes before a meal 2. Surgery consultation for large Hiatal hernia, Start Iron C BID and MVI QD for 90 days. GERD life tsyle changes. REPEAT EXAM: Leobardo Hammer MD eSigned: Leobardo Hammer MD 02/13/2019 9:40 AM cc: PATIENT NAME: Ruthann Collins MR#: [id number]
[2019-02-13] MEDS: NICODERM PATCH TD SCH (10:28)
[2019-02-13] MEDS: NEXIUM IV SCH ×2 (10:28→20:31)
--- NOTE | 2019-02-13 10:57 | PROGRESS NOTE ---
DATE: 02/13/2019 SUBJECTIVE: This morning, Ms. Collins refers to be doing well. No new complaints. She just came out of EGD this morning. OBJECTIVE: Vital signs: Blood pressure is 122/68, pulse of 79, respirations 16 and temperature is 98.0 degrees. General exam: Ms. Collins is 48-year-old female. She is in bed in no distress. HEENT: Mucosa is pink and moist. Anicteric. Acyanotic. Neck: Supple. Chest: Clear to auscultation. No crepitations. No rhonchi. Cardiovascular: Regular rate and rhythm. Abdomen: Soft, nontender. Bowel sounds present. Extremities: No pedal edema. SIMULATION ENGINEER: Patient is awake, alert, oriented. There is no focal neurological deficit. LABORATORY DATA: Has been reviewed. Hemoglobin is 7.8 which has been fairly stable after 3 units of PRBC. Chemistry is unremarkable, except for low potassium. X-RAY DATA: Review of the endoscopy procedure reveals a large hiatal hernia. ASSESSMENT: 1. Severe symptomatic iron deficiency anemia. 2. Anemia secondary to chronic gastrointestinal blood loss. 3. Large hiatal hernia. The patient has been recommended to be seen by Surgery. Consult has been placed today. 4. History of major depressive disorder, anxiety disorder, stable. PLAN: So, in general, Ms. Collins seems to be fairly stable. She is status post 3 PRBC transfusions. H and H is stable. She does not seem to have any more ongoing acute blood loss. She is status post EGD. Findings consist of large hiatal hernia. Surgery has been consulted. cc: Edward Marroquin MD
[2019-02-13] MEDS: CARAFATE PO SCH ×3 (12:34→23:32)
[2019-02-13] MEDS ORDERED: GOLYTELY PO ONE (18:00)
[2019-02-13] MEDS: ICAR-C PO SCH (20:31)
[2019-02-13] MEDS: SODIUM CHLORIDE 0.9% INJ SCH (20:31)
[2019-02-14] MEDS: NS 1,000 ML IV SCH ×3 (01:13→13:29)
--- NOTE | 2019-02-14 02:50 | GENERAL SURGERY CONSULTATION ---
DATE: 02/13/2019 REASON FOR CONSULTATION: Large symptomatic hiatal and paraesophageal hernias. HISTORY OF PRESENT ILLNESS: This is a 48-year-old female who presented to the hospital with recent onset of palpitations and shortness of breath with lightheadedness. Upon presentation she was found to have anemia and heme-positive stools. Subsequent EGD revealed a large hiatal hernia with Jose lesions. She has undergone blood transfusion in the hospital for a total of 3 units, the last one was transfused yesterday evening. She had noted her stools being dark prior to admission. She reports knowing about a chronic hiatal hernia and previous bleeding ulcerations for which she was admitted and treated about 5 years ago. She has long-standing reflux symptoms with indigestion, burning, nausea, occasional vomiting and regurgitation, especially when she lies down or with things like peppermint and orange juice. She does take Prilosec, but often will stop taking it, her symptoms will worsen and she will start the Prilosec back which usually helps her symptoms. PAST MEDICAL HISTORY: GERD, hiatal hernia, iron deficiency anemia, depression, anxiety, constipation. PAST SURGICAL HISTORY: Laparoscopic cholecystectomy, tubal ligation. FAMILY HISTORY: Depression, hypothyroidism, COPD.Allergies: Haldol. SOCIAL HISTORY: She smokes a half pack a day for 22 years. She denies alcohol or illicit drug use. HOME MEDICATIONS: Vitamin B12, vitamin C, vitamin D2, and omeprazole. REVIEW OF SYSTEMS: Ten systems reviewed and negative except as noted above. PHYSICAL EXAMINATION: Vital Signs: Temperature 98.8 degrees, pulse 85, respirations 16, blood pressure 107/62, O2 saturation 100%. General: A well-developed female in no distress who looks her stated age. HEENT: Normocephalic and atraumatic. Extraocular muscles are intact. Pupils are equal, round and reactive to light. Sclerae are anicteric. Moist mucous membranes. Hearing grossly normal. Neck: Supple. No thyromegaly. Cardiovascular: Regular rate and rhythm. Respiratory: Bilateral equal breath sounds. No work of breathing. GI: Soft, nontender and nondistended. No organomegaly or mass. No hernias. Extremities: No clubbing, cyanosis or edema. Skin: Warm and dry. No rash. Musculoskeletal: Moves all extremities equally and well. LABORATORY DATA: Hemoglobin this morning is 7.8, hematocrit 25.6, platelet count 200,000. INR 0.98. Electrolytes reviewed and notable for potassium 3.0. IMAGING: An abdominal x-ray shows mild constipation. A chest x-ray 2 days ago shows hiatal hernia. ASSESSMENT AND PLAN: A 48-year-old female with gastroesophageal reflux disease, hiatal hernia and upper gastrointestinal bleed secondary to Jose lesions. She appears stable at this time. We will allow her to stabilize further and I have recommended increasing her Prilosec dose from 20 mg daily to at least 40 mg daily or perhaps b.i.d. for a while. I will see her back in my office to further assess her fitness for surgery and I discussed with her the pros and cons of a nonsurgical versus surgical approach. Thank you for the consultation. cc: Leif Hutton MD
[2019-02-14] MEDS: CARAFATE PO SCH ×2 (05:03→10:40)
[2019-02-14] MEDS ORDERED: CENTRUM SILVER PO SCH (09:00)
[2019-02-14] MEDS ORDERED: DIPRIVAN 1% ONE (09:33)
[2019-02-14] MEDS ORDERED: XYLOCAINE-MPF 2% ONE (10:01)
--- NOTE | 2019-02-14 10:09 | ENDOSCOPY OPERATIVE NOTE ---
[facility] ENDOSCOPY OPERATIVE NOTE , PATIENT: Ruthann Collins ADM DATE: 02/14/2019 MR #: [id number] : 1970 COLONOSCOPY PROCEDURE REPORT PROCEDURE DATE: 02/14/2019 SURGEON: Amando Victor MD STATUS: inpatient MARKETING FINANCE MANAGER: PREOPERATIVE DIAGNOSIS: The patient is a 48 yr old female here for a colonoscopy due to anemia, non- specific. PROCEDURE PERFORMED: Colonoscopy, diagnostic MEDICATIONS: Per Anesthesia PREP TYPE: GoLytely
[2019-02-14] MEDS: NICODERM PATCH TD SCH (10:40)
[2019-02-14] MEDS: NEXIUM IV SCH (10:40)
[2019-02-14] MEDS: ICAR-C PO SCH (10:40)
[2019-02-14 12:09] VITALS: BP 111/63
--- NOTE | 2019-02-14 19:04 | GENERAL SURGERY PROGRESS NOTE ---
DATE: 02/14/2019 SUBJECTIVE: The patient feels fine this morning. She is status post colonoscopy. No abdominal pain, nausea, or vomiting. No bloody bowel movements overnight. Her hemoglobin and hematocrit are stable. OBJECTIVE: Vital Signs: She is afebrile. Vital signs are stable. General: She is awake, alert, and oriented x3. No acute distress. GI: Soft, nontender, nondistended. OTHER DIAGNOSTIC DATA: Her colonoscopy report was reviewed. There were no signs of blood in the colon, but the prep was inadequate to fully evaluate for polyps or other pathology in the right side of the colon. ASSESSMENT AND PLAN: She has gastroesophageal reflux disease and Jose lesions secondary to a hiatal hernia. I suggest increasing her proton pump inhibitor dose and Carafate use. We will follow up with her as an outpatient to discuss possible surgical management. cc: Leif Hutton MD
--- NOTE | 2019-02-15 14:05 | DISCHARGE SUMMARY ---
ADMISSION DATE: 02/11/2019 DISCHARGE DATE: 02/14/2019 DISPOSITION: Home. FOLLOW-UP: 1. Dr. Victor. 2. Dr. Hutton. CONSULTATIONS DURING THIS ADMISSION: 1. GI was consulted, the patient was seen by Dr. Victor. 2. Surgery was consulted, the patient was seen by Dr. Hutton. INVASIVE PROCEDURES DONE DURING THIS ADMISSION: EGD was done by Dr. Victor which showed a 10 cm hiatal hernia, some gastritis and erosion noted in the large hiatal sac suggesting chronic blood loss. A colonoscopy was attempted, however, there was a very poor preparation, so the procedure was aborted. ADMISSION DIAGNOSES: 1. Gastrointestinal bleed. 2. Anemia, suspicious for iron deficiency. 3. Depression. 4. Anxiety disorder. DIAGNOSES AT THE TIME OF DISCHARGE: 1. Severe symptomatic iron-deficiency anemia. 2. Anemia secondary to chronic gastrointestinal blood loss. 3. Large hiatal hernia. 4. History of bipolar disorder. 5. Anxiety disorder. DISCHARGE MEDICATIONS: 1. Ergocalciferol 50,000 every 7 daily. 2. Fluoxetine 10 mg daily. 3. Cyanocobalamin. 4. Iron. 5. Carafate 1 g p.o. every 6 hours. 6. Laure-Colace 1 tab b.i.d. 7. Omeprazole 20 mg b.i.d. PRESENTING COMPLAINT: Dizziness, weakness, heart palpitations, chest pain. HISTORY OF PRESENTING COMPLAINT: Ms. Collins is a 48-year-old female who has a history of anemia in the past, evaluated and was found to have a Jose lesion and hiatal hernia with a paraesophageal hernia. She was supposed to follow up with Dr. Kerr as an outpatient, however, did not. Presented at this time because of ongoing weakness, dizziness, and dark stool. Upon presentation, she was evaluated and multiple studies were done including hemoglobin and hematocrit which revealed hemoglobin of 5.3. Ms. Collins was admitted to the medical floor for further studies and management. HOSPITAL COURSE: Ms. Collins was initially transfused 2 units of PRBC's, another unit was added at a later date for a total of 3 PRBC transfusions. Hemoglobin and hematocrit improved to 7.8 and it remained there throughout the rest of the hospital course. EGD was also done which revealed a large hiatal hernia with lesions, which was suspicious for the cause of the bleeding, so Surgery was consulted and the patient was seen by Dr. Hutton whose recommendation was made to increase PPI to b.i.d. and have Ms. Collins follow up with Dr. Hutton as an outpatient. Colonoscopy was also attempted. However, because of poor preparation, this was aborted. Recommendation was made by Dr. Victor for the patient to follow up with him at a later date. Today, Ms. Collins refers to be doing a lot better. She feels stronger. Her vitals are stable, blood pressure is 111/63, pulse 91, respirations 16, temperature 99.5 degrees. She is in stable condition. She is going to be discharged and she will follow up with Dr. Hutton and Dr. Vcitor. All the discharge instructions have been discussed with her. She voiced understanding. TIME SPENT: Time spent for discharge is 35 minutes. cc: Edward Marroquin MD
== END 2019-02-14 16:22 | disposition home or self-care (01) | DRG 379 ==
LOC: P.ED 16:40 → SUATTDRO 19:54 → 3N 19:54 → 3S 23:27
PROVIDERS: ATTEND Internal Medicine
CPT/HCPCS: 36430; 71020; 71046; 74000; 74018; 80048; 80053; 80069; 81001; 82270; 82550; 82607; 82728; 82746; 83540; 83550; 83735; 83880; 84439; 84443; 84484; 85014; 85018; 85025; 85027; 85610; 85730; 86850; 86900; 86901; 86920; 87088; 93005; A9270; C9113; J2405; J7030; J7040; P9016; S0164